=== PATIENT | female | born 1945 | race Caucasian/White ===

== ENCOUNTER → 2019-01-14 | Outpatient (CLI) | payer MEDICARE, OTHER ==
[~2019-01-14] MED LIST: LEVO137T2 PO
--- NOTE | 2019-01-14 12:41 | PAIN ---
DATE OF SERVICE: 01/14/2019 INITIAL CONSULTATION FOR PAIN CLINIC CHIEF COMPLAINT: Low back and left greater than right lower extremity pain. HISTORY OF PRESENT ILLNESS: The patient is a 73-year-old female who presents with history of pain in the low back, bilateral lower extremities, more on the left than the right. Also with significant knee pain, which is really her chief complaint today. 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 She is waiting to hear from her orthopedic surgeon for followup regarding any interventional techniques. She has been told she needed a knee replacement. The patient has had several surgeries on the knee. Her back pain, however, is becoming more noticeable with the knee as she is limping and favoring her left lower extremity. She is having more pain in the low back and into the left posterior gluteus, posterior gluteus on the right as well, posterior lateral thigh, anterior medial thigh on the left side as well as the lower leg below the knee on the left side. The patient reports it is worse with walking, standing, changing positions, especially getting up from a seated position. She is using arms of the chair more to support herself getting up, which she did not usually do that more than a year ago. The patient reports it does not awaken her from sleep at night, does not affect her bowel or bladder control, but does affect her ability to walk significantly, again much better with sitting or lying down. The patient reports a disability rating from 0-10, 10 being the worst, is a 7 with family home responsibilities, recreation, social activity, 2 with self-care and 2 with life-support activities. She did have an MRI scan of the lumbar spine showing mild disk endplate and facet degenerative change with degenerative changes L1-L2 with mild annular disk bulging, right foraminal disk bulging resulting in [id number] narrowing of the anterior inferior right neural foramen, L3-L4 shows left foraminal disk bulging resulting in [id number] narrowing of the anterior-inferior left neural foramen and right foraminal disk bulge resulting in minimal narrowing of the anterior inferior right neural foramen. L4-L5 showing moderate bilateral facet and mild ligamentum flavum hypertrophy, mild right foraminal narrowing without evidence of right foraminal L4 nerve root impingement. The patient reports significant fatigability of the left lower extremity, especially with standing for more than 10-15 minutes or walking more than 5-10 minutes. No significant fatigability in the right lower extremity, but again some moderate pain in the right posterior gluteus as well with walking. The patient has not had any formal physical therapies currently, no chiropractic treatments or other treatments. She is doing some exercises on her own and stretching. PAST MEDICAL HISTORY: Significant for cigarette smoking, arthritis, left knee pain, previous radiation treatment from lymphoma. PAST SURGICAL HISTORY: Surgeries include a cataract extraction, tonsillectomy, hemorrhoidectomy, cholecystectomy, carpal tunnel repair, elbow surgery, colon resection, appendectomy, femoral artery and left previous arthroscopic knee surgery. CURRENT MEDICATIONS: Include levothyroxine only. ALLERGIES: THE PATIENT IS ALLERGIC TO MORPHINE. FAMILY HISTORY: Significant for heart disease and cancer. SOCIAL HISTORY: The patient does not drink alcohol, does smoke about 1 pack of cigarettes a day, has for 60 years. Does not use any illegal, illicit or recreational drugs. Single, lives locally in [place], [place] and is currently retired by her report. REVIEW OF SYSTEMS: The patient's review of systems is positive for those items mentioned in history of present illness. All systems reviewed and otherwise negative. It is complete, full and well documented on the patient's chart. PHYSICAL EXAMINATION: VITAL SIGNS: The patient's blood pressure is 137/78, pulse is 75, respirations 18, temperature is 98.1 degrees Fahrenheit, height is 5 feet 2 inches, weight is 189 pounds. GENERAL: The patient is awake, alert, oriented, appropriate, very pleasant demeanor. HEENT: Shows normocephalic, atraumatic. Extraocular movements are intact and symmetrical. Oral cavity: Mucous membranes moist and pink. Dentition is intact. NECK: Shows anterior throat supple without palpable lymphadenopathy noted. Swallow reflex symmetrical. CHEST: Shows normal on inspection. Breath sounds clear to auscultation bilaterally. HEART: Shows S1, S2 clear. No murmurs auscultated. ABDOMEN: Soft, nontender, nondistended. No palpable organomegaly is noted. No rebound or guarding demonstrated. BACK: Shows spine grossly in the midline. Normal-appearing thoracic kyphosis, mild flattening of the lumbar lordotic curvature with lumbar paraspinous muscles show symmetrical inspection, on palpation shows some moderate tenderness diffusely bilaterally going diffusely without significant radiation. The patient has good rotational motion of lumbar spine, both laterally as well as extension and flexion without significant increase in pain with right and left lateral rotation at 10 degrees, extension 10 degrees, forward flexion 45 degrees with only minimal tenderness with extension. EXTREMITIES: The patient's lower extremities show deep tendon reflexes at 1+ in the patellar and tendo calcaneus tendons. The patient has well-healed surgical scar noted over the left knee. Tendo-calcaneus tendons are 1+ bilaterally. Motor exam is strong with 5/5 dorsiflexion, extension approximately 3-4 on a scale of 5 with left quadriceps and hamstring flexion and 5/5 on the right. Peripheral pulses are 1+ posterior tibia. No peripheral edema is noted. Lower extremities are warm and dry to the touch, equal in color and appearance. Straight leg raise noted to be negative for reproduction of radicular symptoms bilaterally. Gaenslen's and Arsen's maneuvers are negative bilaterally as well. The patient is able to stand, but again use of the arms of the chair to help her get up more easily. She is walking with a normal appearing gait, but does appear to favor the left lower extremity significantly and reports the knee pain with standing, even for a few seconds. SKIN: Shows warm and dry, good turgor. No edema. No sores, rashes or bruising throughout. IMPRESSION: This is a 73-year-old female with: 1. Approximately 2-year history of increasing pain in the low back into the left lower extremity more than the right, but present bilaterally. 2. MRI scan of lumbar spine as noted. 3. Left knee joint pain. 4. Cigarette smoking. 5. Arthritis. 6. History of lymphoma. PLAN: Options were discussed with the patient including conservative medical management, physical therapies, interventional techniques and she would like to consider her options after her left knee is evaluated with Orthopedic Surgery as she has been told she needs replacement and I agree this may help her back with potential ability to ambulate more normally without favoring the left lower extremity. The patient will consider options, would like to follow up on as needed basis at this time. We encouraged her to keep stretching and strengthening exercises as tolerated and certainly to follow up with her orthopedic surgeon to evaluate surgical options. TAMMY TEAGUE MD DR: BERENICE/antelmo JOB#: [id number] / [id number] JESS Higuera MD
== END | disposition home or self-care (01) ==
LOC: PNCL 10:58
PROVIDERS: ATTEND Anesthesiology
DX: M51.16 Intervertebral disc disorders with radiculopathy, lumbar region (principal); M25.562 Pain in left knee; M19.90 Unspecified osteoarthritis, unspecified site; F17.210 Nicotine dependence, cigarettes, uncomplicated; Z85.79 Personal history of other malignant neoplasms of lymphoid, hematopoietic and related tissues; Z88.5 Allergy status to narcotic agent; Z92.3 Personal history of irradiation; Z90.49 Acquired absence of other specified parts of digestive tract; Z90.89 Acquired absence of other organs
CPT/HCPCS: G0463